=== PATIENT | male | born 2005 | race Caucasian/White ===

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

== ENCOUNTER 2024-05-10 21:52 | Emergency (ER) | payer OTHER, SELFPAY ==
[2024-05-10 21:54] VITALS: BP 139/90; PULSE 91; RESP 15; TEMP 35.8; O2SAT 100; BMI 17.2
--- NOTE | 2024-05-10 22:20 | EX.ED.DYSGE1 ---
HPI History of Present Illness Chief Complaint: Head Injury Informant: patient and family Narrative Narrative: Patient is a 18-year-old male with past medical history of of concussion. He states roughly 2 hours ago he was snowboarding when he went off a jump but leaned back too far and did not land it. He states he came down approximately 3 to 5 feet and struck his back and the back of his head. He states he was not wearing a helmet. He denies LOC but states that he saw stars. Following the injury he has had persistent headache with light sensitivity and nausea and according to family mild confusion as he is asked where they going multiple times on the way to the hospital. Patient denies any history of bleeding disorder or blood thinner use but with concern for concussion he was brought in for evaluation [facility] Medical History no medical history Home Medications ?Medication ?Instructions ?Recorded ?Last Taken ?Type NK 05/10/24 Unknown History Allergy/AdvReac Type Severity Reaction Status Date / Time No Known Allergies Allergy Verified 05/10/24 21:54 Surgical History no surgical history Social History Smoking Status: Never smoker [facility] ED Constitutional Constitutional ED: Denies chills or fever(s) Eyes Eyes: Reports other Details: Positive photophobia ENT ENT ED: Denies sore throat Cardiovascular Cardiovascular: Denies chest pain Respiratory/Chest Respiratory/Chest: Denies cough or dyspnea Gastrointestinal Gastrointestinal: Reports nausea; Denies abdominal pain, diarrhea or vomiting Genitourinary Genitourinary ED: Denies dysuria Musculoskeletal Musculoskeletal: Denies back pain or neck pain Integumentary Denies rash Neurologic Neurologic: Reports headache(s) Hematologic/Lymphatic Hematologic/Lymphatic: Denies easy bleeding or easy bruising EXAM Physical Exam Const Vital Signs: 05/10/24 21:54 05/10/24 22:25 05/10/24 22:26 Temperature 96.5 F L 98.0 F Temperature Source Temporal Pulse Rate 91 69 Respiratory Rate 15 16 Respiratory Effort Normal Non-Labored Respiratory Depth Normal Respiratory Pattern Normal Blood Pressure 139/90 H 116/92 H Blood Pressure Mean 106 100 Pulse Ox 100 96 Oxygen Delivery Method Room Air Room Air Positive well nourished and well developed General Appearance ED: well developed; Negative for pallor HEENT HEENT Narrative: No signs of depressed or basilar skull fracture Patient does have a 1 x 2 cm hematoma along the occipital portion of the scalp consistent with history of head injury Eyes EOMs intact bilaterally Eyes Narrative: Pupils are slightly dilated and sluggish to respond to light Neck supple Neck Narrative: No bony deformity or step-off of the cervical spine no midline tenderness to palpation Chest Wall palpation of chest normal Resp normal respiratory effort and clear to auscultation bilaterally Cardio regular rate and regular rhythm GI normal to inspection, nondistended, normoactive bowel sounds, non-tender, non-distended and no masses Auscultation: normoactive bowel sounds Palpation: soft Back/Spine Back/Spine Narrative: No bony deformity or step-off of the thoracic or lumbar spine no midline tenderness to palpation Extremity normal to inspection Neuro oriented x3, CN's II-XII intact bilaterally and no sensory deficits noted Neuro Narrative: GCS of 15 Cranial nerves II through XII are grossly intact without focal neurologic deficit No pronator drift no dysmetria no truncal ataxia NIH stroke scale score of 0 Sensorium / Orientation: alert Motor Exam: strength 5/5 throughout Psych mental status grossly normal Skin no rashes or lesions noted and no wounds Skin Narrative: Hematoma of the occipital portion of the scalp as documented above General Skin Exam: Negative for jaundice or pallor MDM MDM MDM Narrative Medical decision making narrative: Patient arrived to the ER with stable vitals and normal neurologic exam. He had a low to moderate mechanism of injury head impact/injury. However he is young and healthy he does not take blood thinners nor have a history of bleeding disorder and had no LOC associated with the event. It has been roughly 2 and half hours since the injury occurred and he has not had change in mental status or bouts of vomiting. He does not have findings concerning for depressed or basilar skull fracture. Therefore my concern for a traumatic skull fracture versus subdural or subarachnoid hemorrhage is low and I do not feel there is need for imaging. I did discuss this with the patient and family. I informed them that based on his history and exam and risk factors that watching at home for changes to mental status or vomiting would be appropriate or that we could do a head CT at this time to confirm there is no fracture or bleed. Family states that they would prefer to watch him at home as my exam does not suggest true intracranial pathology at this time. Therefore patient be discharged home with strict return precautions and family and patient agree to this History & Record Review Discussion w/independent historian: Patient and Family Discharge Plan Triage Chief Complaint: Head Injury ED Provider: Tor Vasques Dx/Rx/DC Orders Clinical Impression: Closed head injury, Concussion Instructions: After a Concussion, Concussion Dc, ED Head Injury (Adult) Prescriptions: No Action NK Primary Care Provider: Care Physician,No Primary Referrals: Lavon Rudd MD [Med Staff - Active Staff] - Care Physician,No Primary [Primary Care Provider] - Activity Restrictions/Additional Instructions: Your history and exam is consistent with a concussion. If you develop bouts of vomiting or you notice change in mental status please return to the ER for repeat evaluation as you may need a head CT Print Language: Slovenian Disposition Disposition: Home, Self Care Discharge Date/Time: 05/10/24 22:30
[2024-05-10 22:26] VITALS: BP 116/92; PULSE 69; RESP 16; TEMP 36.7; O2SAT 96
== END 2024-05-10 22:30 | disposition home or self-care (01) ==
PROVIDERS: Emergency Provider Emergency Medicine; Visit Provider Emergency Medicine
DX: S06.0X0A Concussion without loss of consciousness, initial encounter (principal); Y93.23 Activity, snow (alpine) (downhill) skiing, snowboarding, sledding, tobogganing and snow tubing
CPT/HCPCS: 99282